=== PATIENT | female | born 2000 | race African-American/Black ===

== ENCOUNTER 2022-11-25 20:03 | Emergency (ER) | payer MEDICAID, OTHER ==
[~2022-11-25] VITALS: Ht 162.6 cm; Wt 55.0 kg
[2022-11-25 20:06] VITALS: BP 118/88; PULSE 80; RESP 18; TEMP 99; O2SAT 99
[2022-11-25] MEDS ORDERED: KETOROLAC 30MG/ML VIAL IM ONE (22:45)
== END 2022-11-25 23:04 | disposition left against medical advice (07) ==
LOC: ER 20:03
DX: M79.605 Pain in left leg (principal)
CPT/HCPCS: 99283